=== PATIENT | female | born 1995 | race Caucasian/White ===

== ENCOUNTER 2024-08-04 19:00 | Inpatient (IN) | payer OTHER ==
--- OUTSIDE RECORDS SUMMARY | 2024-08-04 19:04 | XMS REPORT | Continuity of Care Document ---
Author Name Unknown Address [address] [facility] [address] [place] [address] [facility] thconnect Address [address] [facility] [address] [place] [address] Care Team Providers Care Water System Operator Name Role Phone Erica Mcclain, [facility] Primary Care Physician CIERA MATAMOROS Attending Clinician Unavailable [place] Ciera Attending Clinician [phone] Radha Song PA-C Attending Clinician [phone] Only, Ang Db Test Attending Clinician Unavailabl e Ray Devika MCKEON Attending Clinician [phone] DEVIKA BELL Attending Clinician Unavailabl e Doctor Unassigned, [place] Attending Clinician U navailable NAOMI MISHRA Attending Clinician Unavailable RADHA SONG Attending Clinician Unavailable Dayana Mata MD Attending Clinician [phone] Rodriguez Kirkland DO Attending Clinician [phone] Ada Berg MD Attending Clinician [phone] Lab, Adc Fam Pob I Attending Clinician Unavailab Jamilah Ward Attending Clinician [phone] JAMILAH MARCH Attending Clinician Unavailable DAYANA MATA Attending Clinician Unavailable ADA BERG Attending Clinician Unavailable Only, Adc Test Attending Clinician Unavailable Erik Weems MD Attending Clinician [phone] ERIK WEEMS Attending Clinician Unavailable Airam RN, Freya Attending Clinician Unavailable Nurse, [facility] Attending Clinician Un available Problems Condition Name Condition Details Condition Category Status Onset Date Resolution Date Last Treatment Date Treating Clinician Comments Source Morbid obesity with body mass index of 40.0-49.9 Morbid obesity with body mass index of 40.0-49.9 Disease Active 11-23 00:00: 00 [facility] Morbid obesity with body mass index of 40.0-49.9 Morbid obesity with body mass index of 40.0-49.9 Disease Active 11-23 00:00: 00 [facility] Short stature for age Short stature for age Disease Active 04-28 00:00: 00 [facility] On oral contracept sidney pills for non-contra ception indication On oral contracept sidney pills for non-contra ception indication Disease Active 2015-08 00:00: 00 [facility] Obesity (BMI 35.0-39.9 without comorbidit y) Obesity (BMI 35.0-39.9 without comorbidit y) Disease Active 03-15 00:00: 00 [facility] Dysmenorrh ea Dysmenorrh ea Disease Active 03-15 00:00: 00 [facility] Family history of endometrio sis Family history of endometrio sis Disease Active 03-15 00:00: 00 [facility] Oral contracept sidney use Oral contracept sidney use Disease Active 03-15 00:00: 00 [facility] Acquired hypothyroi dism Acquired hypothyroi dism Disease Active 03-15 00:00: 00 [facility] Allergies, Adverse Reactions, Alerts Allergy Name Allergy Type Status Severity Reaction(s) Onset Date Inactive Date Treating Clinician Comments Source DOXYLAMI N-PSE-DM -ACETAMI NOPHEN DRUG Active High Rash 10-01 00:00: 00 [facility] Doxylami n-Pse-Dm -Acetami nophen Propensi ty to adverse reaction s Active Rash 10-01 00:00: 00 [facility] NO KNOWN ALLERGIE S Drug Class Active [facility] Social History Social Habit Start Date Stop Date Quantity Comments [facility] to SARS-CoV-2 (event) 2021-07-17 00:00:00 2021-08-16 11:51:00 Not sure [facility] Alcohol intake 2021-02-25 00:00:00 2021-02-25 00:00:00 0 /d [facility] History of Social function 2019-02-28 00:00:00 2019-02-28 00:00:00 [facility] Tobacco use and exposure 2016-03-15 00:00:00 2016-03-15 00:00:00 Smokeless tobacco non-user [facility] Sex Assigned At 1995 00:00:00 1995 00:00:00 [facility] Smoking Status Start Date Stop Date Source Never smoked tobacco [facility] Medications Ordered Medication Name Filled Medication Name Start Date Stop Date Current Medication? Ordering Clinician Indication Dosage Frequency Signature (SIG) Comments Components Source bupropion HCl XL 450 mg 24 hr tablet, extended release 2023-08 00:00: 00 Yes 1mg Ernesto Garrison buspirone 15 mg tablet 2023-08 00:00: 00 Yes 1mg Ernesto Garrison hydroxyzine HCl 50 mg tablet 2023-08 00:00: 00 Yes 1mg Ernesto Garrison risperidone 1 mg tablet 2023-08 00:00: 00 Yes 1mg Ernesto Garrison topiramate 50 mg tablet 2023-08 00:00: 00 Yes 1mg Ernesto Garrison phentermine 15 mg capsule 2023-08 00:00: 00 Yes 1mg Ernesto Garrison rosuvastati n 10 mg tablet 2023-08 00:00: 00 Yes 1mg Ernesto Garrison risperidone 1 mg tablet 2023-08 00:00: 00 Yes 1mg Ernesto Garrison bupropion HCl XL 450 mg 24 hr tablet, extended release 2023-08 00:00: 00 Yes 1mg Ernesto Garrison buspirone 15 mg tablet 2023-08 00:00: 00 Yes 1mg Ernesto Garrison hydroxyzine HCl 50 mg tablet 2023-08 0-07 00:00: 00 Yes 1mg Ernesto Garrison risperidone 1 mg tablet 2023-08 0-07 00:00: 00 Yes 1mg Ernesto Garrison bupropion HCl XL 450 mg 24 hr tablet, extended release 0 8-08 00:00: 00 Yes 1mg Ernesto Garrison buspirone 10 mg tablet 0 8-08 00:00: 00 Yes 1mg Ernesto Garrison hydroxyzine HCl 50 mg tablet 0 8-08 00:00: 00 Yes 1mg Ernesto Garrison risperidone 1 mg tablet 0 8-08 00:00: 00 Yes 1mg Ernesto Garrison bupropion HCl XL 450 mg 24 hr tablet, extended release 0 6-12 00:00: 00 Yes 1mg Ernesto Garrison buspirone 10 mg tablet 0 6-12 00:00: 00 Yes 1mg Ernesto Garrison hydroxyzine HCl 50 mg tablet 0 6-12 00:00: 00 Yes 1mg Ernesto Garrison risperidone 1 mg tablet 0 6-12 00:00: 00 Yes 1mg Ernesto Garrison bupropion HCl XL 450 mg 24 hr tablet, extended release 0 5-15 00:00: 00 Yes 1mg Ernesto Garrison buspirone 10 mg tablet 0 5-15 00:00: 00 Yes 1mg Ernesto Garrison hydroxyzine HCl 50 mg tablet 0 5-15 00:00: 00 Yes 1mg Ernesto Garrison risperidone 1 mg tablet 0 5-15 00:00: 00 Yes 1mg Ernesto Garrison TAKE 1 TABLET BY MOUTH DAILY 0 24 00:00: 00 Yes 450 Ernesto Garrison TAKE 1 TABLET DAILY. 12-11 00:00: 00 Yes 300 Ernesto Garrison TAKE 1 TABLET AT BEDTIME. 12-11 00:00: 00 Yes 5 Ernesto Garrison TAKE 1 TABLET BY MOUTH TWICE A DAY 0 12-11 00:00: 00 Yes 75 Ernesto Garrison TAKE 1 TAB BY MOUTH EVERY SIX HOURS NEEDED FOR ANXIETY 0 12-11 00:00: 00 Yes 50 Ernesto Garrison losartan 50 mg tablet 12-03 00:00: 00 Yes 1mg Ernesto Garrison hydrochloro thiazide 50 mg tablet 12-03 00:00: 00 Yes 1mg Ernesto Garrison amlodipine 10 mg tablet 12-03 00:00: 00 Yes 1mg Ernesto Garrison TAKE 1 TABLET BY MOUTH TWICE A DAY 11-13 00:00: 00 01-02 00:00 :00 No 75 Ernesto Garrison TAKE 1 TABLET AT BEDTIME. 11-13 00:00: 00 01-02 00:00 :00 No 5 Ernesto Garrison TAKE 1 TABLET DAILY. 11-13 00:00: 00 01-02 00:00 :00 No 300 Ernesto Garrison TAKE 1 TAB BY MOUTH EVERY SIX HOURS NEEDED FOR ANXIETY 11-13 00:00: 00 01-02 00:00 :00 No 50 Ernesto Garrison TAKE 1 TABLET BY MOUTH TWICE A DAY 10-23 00:00: 00 01-02 00:00 :00 No 75 Ernesto Garrison TAKE 1 TAB BY MOUTH EVERY SIX HOURS NEEDED FOR ANXIETY 10-23 00:00: 00 01-02 00:00 :00 No 50 Ernesto Garrison buspirone 5 mg tablet 10-09 00:00: 00 Yes mg Ernesto Garrison hydroxyzine HCl 50 mg tablet 10-09 00:00: 00 Yes mg Ernesto Garrison TAKE 1 TAB EVERY 6 HOURS NEEDED FOR ANXIETY 09-18 00:00: 00 01-02 00:00 :00 No 25 Ernesto Garrison TAKE 1 TABLET DAILY. 09-04 00:00: 00 Yes 50 Ernesto Garrison TAKE 1 TABLET BY MOUTH DAILY FOR BLOOD PRESSURE. 09-04 00:00: 00 Yes 10 Ernesto Garrison TAKE 1 TABLET EVERY MORNING. 09-04 00:00: 00 Yes 50 Ernesto Garrison TAKE 1 TAB EVERY 6 HOURS NEEDED FOR ANXIETY 09-04 00:00: 00 01-02 00:00 :00 No 25 Ernestolynne Garrison TAKE 1 TAB PO QD FOR HYPERTENSIO N DOSAGE INCREASE 2022-08 00:00: 00 01-02 00:00 :00 No 10 Ernestolynne Garrison TAKE 1 TABLET DAILY. 2022-08 00:00: 00 01-02 00:00 :00 No 50 Ernesto Garrison TAKE 1 TABLET EVERY MORNING. 2022-08 00:00: 00 01-02 00:00 :00 No 50 Ernestolynne Garrison TAKE 1 TABLET EVERY MORNING. 05-08 00:00: 00 01-02 00:00 :00 No 50 Ernesto Garrison TAKE 1 TAB PO QD FOR HYPERTENSIO N DOSAGE INCREASE 05-08 00:00: 00 01-02 00:00 :00 No 10 Ernestolynne Garrison TAKE 1 TABLET DAILY. 04-07 00:00: 00 01-02 00:00 :00 No 5 Ernesto Garrison TAKE 1 TABLET EVERY MORNING. 04-07 00:00: 00 01-02 00:00 :00 No 50 Ernesto Yanci Garrison 1 po qd 02-20 00:00: 00 Yes 10 Ernesto Yanci Garrison 1 po qd 02-20 00:00: 00 Yes 20 Ernesto Yanci Garrison 1 po qd 02-20 00:00: 00 Yes [id number] Ernestolynne Garrison 1 po qd 02-20 00:00: 00 Yes 50 Ernesto Garrison TAKE 1 TAB PO QD FOR BLOOD PRESSURE 02-20 00:00: 00 01-02 00:00 :00 No 25 Ernesto Yanci Garrison 1 po qd - 00:00: 00 01-02 00:00 :00 No 300 Ernesto Yanci Garrison 1 po qd - 00:00: 00 01-02 00:00 :00 No 5 Ernesto Yanci Garrison predniSONE (DELTASONE) tablet 40 mg 2-12 03:30: 00 10-02 02:29 :00 No [id number] 40mg [facility] diphenhydrA MINE (BENADRYL) tablet 25 mg 2-12 03:30: 00 10-02 02:30 :00 No [id number] 25mg [facility] hydrOXYzine 25 mg tablet 2- 00:00: 00 Yes [id number] 25mg Take 1 tablet by mouth every 6 (six) hours as needed for Itching. [facility] predniSONE 20 mg tablet 2 00:00: 00 10-07 05:59 :00 No [id number] Take 2 tablets by mouth daily for 2 days, THEN 1 tablet daily for 3 days. [facility] benzonatate (TESSALON PERLES) 100 mg capsule 02-25 00:00: 00 Yes [id number] 100mg Take 1 capsule by mouth 3 (three) times daily. [facility] amLODIPine 5 mg tablet 02-25 00:00: 00 Yes [id number] 5mg Take 1 tablet by mouth daily. Additional refills per PCP [facility] norgestimat e-ethinyl estradioL (FEMYNOR) 0.25-35 mg-mcg per tablet 11-23 00:00: 00 Yes [id number] 1{tbl} Take 1 tablet by mouth daily. [facility] fluconazole 150 mg tablet 11-23 00:00: 00 11-24 04:59 :00 No [id number] 150mg Take 1 tablet by mouth once now for 1 dose. [facility] norgestimat e-ethinyl estradioL (FEMYNOR) 0.25-35 mg-mcg per tablet 11-10 00:00: 00 11-23 00:00 :00 No 1{tbl} Take 1 tablet by mouth daily. [facility] norgestimat e-ethinyl estradiol (FEMYNOR) 0.25-35 mg-mcg per tablet 18 00:00: 00 11-10 00:00 :00 No 1{tbl} Take 1 tablet by mouth daily. [facility] norgestimat e-ethinyl estradiol (FEMYNOR) 0.25-35 mg-mcg per tablet 08-29 00:00: 00 11-05 00:00 :00 No 1{tbl} Take 1 tablet by mouth daily. [facility] risperiDONE 0.5 mg tablet 03-07 00:00: 00 Yes [facility] traZODONE 100 mg tablet 03-06 00:00: 00 Yes [facility] buPROPion XL 300 mg 24 hr tablet 03-06 00:00: 00 Yes [facility] levothyroxi ne (SYNTHROID) 50 mcg tablet 03-01 00:00: 00 Yes 50ug Take 50 mcg by mouth daily. [facility] Immunizations Ordered Immunization Name Filled Immunization Name Date Status Comments Source influenza, unspecified f influenza, unspecified f 2020-06-10 00:00:00 Completed Ernesto Garrison Influenza Virus Vaccine 2020-06-10 00:00:00 Completed [facility] Influenza Virus Vaccine 2020-06-10 00:00:00 Completed [facility] Influenza Virus Vaccine 2020-06-10 00:00:00 Completed [facility] Influenza Virus Vaccine 2020-06-10 00:00:00 Completed [facility] HPV9 2017-08-28 00:00:00 Completed [facility] HPV9 2017-08-28 00:00:00 Completed [facility] HPV9 2017-08-28 00:00:00 Completed [facility] HPV9 2017-08-28 00:00:00 Completed [facility] HPV9 2017-08-28 00:00:00 Completed [facility] HPV9 2017-08-28 00:00:00 Completed [facility] HPV9 2017-08-28 00:00:00 Completed [facility] HPV9 2017-08-28 00:00:00 Completed [facility] HPV9 2017-08-28 00:00:00 Completed [facility] HPV9 2017-08-28 00:00:00 Completed [facility] HPV9 2017-08-28 00:00:00 Completed [facility] HPV9 2017-08-28 00:00:00 Completed [facility] HPV9 2017-08-28 00:00:00 Completed [facility] HPV9 2017-08-28 00:00:00 Completed [facility] HPV9 2017-08-28 00:00:00 Completed [facility] HPV9 2017-04-28 00:00:00 Completed [facility] HPV9 2017-04-28 00:00:00 Completed [facility] HPV9 2017-04-28 00:00:00 Completed [facility] HPV9 2017-04-28 00:00:00 Completed [facility] HPV9 2017-04-28 00:00:00 Completed [facility] HPV9 2017-04-28 00:00:00 Completed [facility] HPV9 2017-04-28 00:00:00 Completed [facility] HPV9 2017-04-28 00:00:00 Completed [facility] HPV9 2017-04-28 00:00:00 Completed [facility] HPV9 2017-04-28 00:00:00 Completed [facility] HPV9 2017-04-28 00:00:00 Completed [facility] HPV9 2017-04-28 00:00:00 Completed [facility] HPV9 2017-04-28 00:00:00 Completed [facility] HPV9 2017-04-28 00:00:00 Completed [facility] HPV9 2017-04-28 00:00:00 Completed [facility] HPV9 2016-03-15 00:00:00 Completed [facility] HPV9 2016-03-15 00:00:00 Completed [facility] HPV9 2016-03-15 00:00:00 Completed [facility] HPV9 2016-03-15 00:00:00 Completed [facility] HPV9 2016-03-15 00:00:00 Completed [facility] HPV9 2016-03-15 00:00:00 Completed [facility] HPV9 2016-03-15 00:00:00 Completed [facility] HPV9 2016-03-15 00:00:00 Completed [facility] HPV9 2016-03-15 00:00:00 Completed [facility] HPV9 2016-03-15 00:00:00 Completed [facility] HPV9 2016-03-15 00:00:00 Completed [facility] HPV9 2016-03-15 00:00:00 Completed [facility] HPV9 2016-03-15 00:00:00 Completed [facility] HPV9 2016-03-15 00:00:00 Completed [facility] HPV9 2016-03-15 00:00:00 Completed [facility] HPV9 Unknown Completed [facility] Influenza Virus Vaccine Unknown Completed [facility] Vital Signs Vital Name Observation Time Observation Value Comments S ource Systolic blood pressure 2021-10-02 02:14:00 154 mm[Hg] [facility] Diastolic blood pressure 2021-10-02 02:14:00 95 mm[Hg] [facility] Heart rate 2021-10-02 02:14:00 108 /min [facility] Body temperature 2021-10-02 02:14:00 36.78 Letty [facility] Body height 2021-10-02 02:14:00 149.9 cm [facility] Body weight 2021-10-02 02:14:00 104.191 kg Univ [facility] BMI 2021-10-02 02:14:00 46.39 kg/m2 [facility] Systolic blood pressure 2020-11-23 19:06:00 156 mm[Hg] [facility] Diastolic blood pressure 2020-11-23 19:06:00 98 mm[Hg] [facility] Heart rate 2020-11-23 19:06:00 94 /min [facility] Body temperature 2020-11-23 19:06:00 36.83 Letty [facility] Respiratory rate 2020-11-23 19:06:00 18 /min [facility] Body height 2020-11-23 19:06:00 149.9 cm [facility] Body weight 2020-11-23 19:06:00 105.235 kg Univ [facility] BMI 2020-11-23 19:06:00 46.86 kg/m2 [facility] Systolic blood pressure 2019-09-05 22:14:00 142 mm[Hg] [facility] Diastolic blood pressure 2019-09-05 22:14:00 94 mm[Hg] [facility] Heart rate 2019-09-05 22:13:00 101 /min [facility] Body temperature 2019-09-05 22:13:00 36.83 Letty [facility] Respiratory rate 2019-09-05 22:13:00 18 /min [facility] Body height 2019-09-05 22:13:00 149.9 cm [facility] Body weight 2019-09-05 22:13:00 100.699 kg [facility] BMI 2019-09-05 22:13:00 44.84 kg/m2 [facility] BP Systolic 2024-07-22 14:17:00 138 mm[Hg] Step hen F Bladimir BP Diastolic 2024-07-22 14:17:00 89 mm[Hg] Vik phen F Bladimir Weight Measured 2024-07-22 14:17:00 251.40 pounds Ernesto F Bladimir Height Measured 2024-07-22 14:17:00 59.00 inches Ernesto F Bladimir Body Temperature 2024-07-22 14:17:00 98.20 degrees Ernesto F Bladimir Heart Rate 2024-07-22 14:17:00 104.00 /min Step hen F Bladimir Respiratory Rate 2024-07-22 14:17:00 18.00 /min Ernesto F Bladimir BP Systolic 2024-07-08 09:33:00 Step hen F Bladimir BP Diastolic 2024-07-08 09:33:00 Vik phen F Bladimir Weight Measured 2024-07-08 09:33:00 Ernesto F Bladimir Height Measured 2024-07-08 09:33:00 Ernesto F Bladimir Body Temperature 2024-07-08 09:33:00 Ernesto F Bladimir Heart Rate 2024-07-08 09:33:00 Sandy en F Bladimir Respiratory Rate 2024-07-08 09:33:00 Ernesto F Bladimir BP Systolic 2024-06-10 11:12:00 124 mm[Hg] Step hen F Bladimir BP Diastolic 2024-06-10 11:12:00 84 mm[Hg] Vik phen F Bladimir Weight Measured 2024-06-10 11:12:00 250.20 pounds Ernesto F Bladimir Height Measured 2024-06-10 11:12:00 59.00 inches Ernesto F Bladimir Body Temperature 2024-06-10 11:12:00 97.00 degrees Ernesto F Bladimir Heart Rate 2024-06-10 11:12:00 98.30 /min Sandy en F Bladimir Respiratory Rate 2024-06-10 11:12:00 16.00 /min Ernesto F Bladimir BP Systolic 2023-12-04 09:15:00 147 mm[Hg] Step hen F Bladimir BP Diastolic 2023-12-04 09:15:00 79 mm[Hg] Vik phen F Bladimir Weight Measured 2023-12-04 09:15:00 247.00 pounds Ernesto F Bladimir Height Measured 2023-12-04 09:15:00 59.00 inches Ernesto F Bladimir Body Temperature 2023-12-04 09:15:00 97.80 degrees Ernesto F Bladimir Heart Rate 2023-12-04 09:15:00 92.00 /min Sandy en F Bladimir Respiratory Rate 2023-12-04 09:15:00 18.00 /min Ernesto F Bladimir BP Systolic 2023-09-04 09:20:00 138 mm[Hg] Step hen F Bladimir BP Diastolic 2023-09-04 09:20:00 72 mm[Hg] Vik phen F Bladimir Weight Measured 2023-09-04 09:20:00 243.00 pounds Ernesto F Bladimir Height Measured 2023-09-04 09:20:00 59.00 inches Ernesto F Bladimir Body Temperature 2023-09-04 09:20:00 98.30 degrees Ernesto F Bladimir Heart Rate 2023-09-04 09:20:00 96.00 /min Sandy en F Bladimir Respiratory Rate 2023-09-04 09:20:00 18.00 /min Ernesto F Bladimir BP Systolic 2023-06-12 11:08:00 153 mm[Hg] Step hen F Bladimir BP Diastolic 2023-06-12 11:08:00 89 mm[Hg] Vik phen F Bladimir Weight Measured 2023-06-12 11:08:00 237.40 pounds Ernesto F Bladimir Height Measured 2023-06-12 11:08:00 59.00 inches Ernesto F Bladimir Body Temperature 2023-06-12 11:08:00 98.30 degrees Ernesto F Bladimir Heart Rate 2023-06-12 11:08:00 97.00 /min Sandy en F Bladimir Respiratory Rate 2023-06-12 11:08:00 19.00 /min Ernesto F Bladimir BP Systolic 2023-05-08 15:11:00 152 mm[Hg] Step hen F Bladimir BP Diastolic 2023-05-08 15:11:00 95 mm[Hg] Vik phen F Bladimir Weight Measured 2023-05-08 15:11:00 241.60 pounds Ernesto F Bladimir Height Measured 2023-05-08 15:11:00 59.00 inches Ernesto F Bladimir Body Temperature 2023-05-08 15:11:00 98.20 degrees Ernesto F Bladimir Heart Rate 2023-05-08 15:11:00 107.00 /min Step hen F Bladimir Respiratory Rate 2023-05-08 15:11:00 Ernesto F Bladimir BP Systolic 2023-04-07 14:25:00 172 mm[Hg] Step hen F Bladimir BP Diastolic 2023-04-07 14:25:00 101 mm[Hg] Vik phen F Bladimir Weight Measured 2023-04-07 14:25:00 241.00 pounds Ernesto F Bladimir Height Measured 2023-04-07 14:25:00 59.00 inches Ernesto F Bladimir Body Temperature 2023-04-07 14:25:00 98.10 degrees Ernesto F Bladimir Heart Rate 2023-04-07 14:25:00 95.00 /min Sandy en F Bladimir Respiratory Rate 2023-04-07 14:25:00 Ernesto F Bladimir BP Systolic 2023-02-20 13:37:00 185 mm[Hg] Step hen F Bladimir BP Diastolic 2023-02-20 13:37:00 112 mm[Hg] Vik phen F Bladimir Weight Measured 2023-02-20 13:37:00 238.20 pounds Ernesto F Bladimir Height Measured 2023-02-20 13:37:00 59.00 inches Ernesto F Bladimir Body Temperature 2023-02-20 13:37:00 98.10 degrees Ernesto F Bladimir Heart Rate 2023-02-20 13:37:00 96.00 /min Sandy en F Bladimir Respiratory Rate 2023-02-20 13:37:00 17.00 /min Ernesto Garrison Procedures Procedure Date / Time Performed Performing Clinicia n Source ASSIGNMENT OF BENEFITS 2020-07-02 14:36:06 Docto r Unassigned, [place] [facility] ASSIGNMENT OF BENEFITS 2019-09-05 21:09:24 Docto r Unassigned, [place] [facility] Encounters Start Date/Time End Date/Time Encounter Type Admission Type Attending [facility] Care Department Encounter ID Source 2024-07-22 14:15:25 2024-07-22 14:15:25 Outpatient S[facility] [id number] Ernesto Garrison 2024-07-22 00:00:00 2024-07-22 00:00:00 Outpatient Visit [facility] [id number] Ernesto Garrison 2024-07-08 09:27:25 2024-07-08 09:27:25 Outpatient SFA [facility] [id number] Ernesto Garrison 2024-07-08 00:00:00 2024-07-08 00:00:00 Outpatient Visit SFA [id number] Ernesto Garrison 2024-06-11 10:46:00 2024-06-11 10:46:00 Outpatient SFA [facility] [id number] Ernesto Garrison 2024-06-10 11:11:21 2024-06-10 11:11:21 Outpatient [facility] [id number] Ernesto Garrison 2024-06-10 00:00:00 2024-06-10 00:00:00 Outpatient Visit SFA [id number] Ernesto Garrison 2024-01-03 09:54:35 2024-01-03 09:54:35 Outpatient [facility] [id number] Ernesto Garrison 2023-12-27 10:34:45 2023-12-27 10:34:45 Outpatient [facility] [id number] Ernesto Garrison 2023-12-20 11:01:29 2023-12-20 11:01:29 Outpatient SFA [facility] [id number] Ernesto Garrison 2023-12-19 13:06:06 2023-12-19 13:06:06 Outpatient SFA [facility] [id number] Ernesto Garrison 2023-12-13 14:16:02 2023-12-13 14:16:02 Outpatient SFA [facility] [id number] Ernesto Garrison 2023-12-12 09:40:01 2023-12-12 09:40:01 Outpatient SFA [facility] [id number] Ernesto Garrison 2023-12-04 09:16:03 2023-12-04 09:16:03 Outpatient SFA [facility] [id number] Ernesto Garrison 2023-11-14 08:16:48 2023-11-14 08:16:48 Outpatient SFA [facility] [id number] Ernesto Garrison 2023-11-13 13:03:32 2023-11-13 13:03:32 Outpatient SFA [facility] [id number] Ernesto Garrison 2023-10-24 08:36:49 2023-10-24 08:36:49 Outpatient SFA [facility] [id number] Ernesto Garrison 2023-10-16 13:05:42 2023-10-16 13:05:42 Outpatient SFA [facility] [id number] Ernesto Garrison 2023-10-09 09:50:46 2023-10-09 09:50:46 Outpatient SFA [facility] [id number] Ernesto Garrison 2023-09-19 13:07:13 2023-09-19 13:07:13 Outpatient SFA [facility] [id number] Ernesto Garrison 2023-09-18 10:19:36 2023-09-18 10:19:36 Outpatient SFA [facility] [id number] Ernesto Garrison 2023-09-04 15:37:31 2023-09-04 15:37:31 Outpatient SFA [facility] [id number] Ernesto Garrison 2023-06-12 11:02:42 2023-06-12 11:02:42 Outpatient SFA [facility] [id number] Ernesto Garrison 2023-05-08 15:03:20 2023-05-08 15:03:20 Outpatient SFA [facility] [id number] Ernesto Garrison 2023-04-07 14:09:52 2023-04-07 14:09:52 Outpatient [facility] [id number] rEnesto Garrison 2023-03-01 14:28:28 2023-03-01 14:28:28 Outpatient [facility] [id number] Ernesto Garrison 2021-10-01 20:00:00 2021-10-01 20:47:45 Outpatient R SHILOH CIERA [facility] [id number] [facility] 2021-10-01 20:00:00 2021-10-01 20:47:45 Urgent Care Counts include 234 beds at the [facility] MEDICAL [facility]ICE BU[facility] 1..840.114 350.1.13.10 4.2.7.2.686 [id number] [facility] 2021-09-03 00:00:00 2021-09-03 00:00:00 Telephone Radha Song [facility] BUILDING 1..840.114 350.1.13.10 4.2.7.2.686 [id number] [facility] 2021-08-16 12:00:00 2021-08-16 12:15:00 Laboratory Only Only, Ang Db Test Ray [facility] MEDICAL OFFICE BUILDING 1..840.114 350.1.13.10 4.2.7.2.686 [id number] [facility] 2021-08-16 12:00:00 2021-08-16 12:00:00 Outpatient R RAY [facility] [id number] [facility] 2021-03-05 00:00:00 2021-03-05 00:00:00 Patient Secure Msg Doctor Unassigned, [place] [facility] 1.840.114 350.1.13.10 4.2.7.2.686 [id number] [facility] 2021-02-25 09:20:00 2021-02-25 09:20:00 Outpatient R NAOMI MISHRA [facility] [id number] [facility] 2020-11-23 13:50:18 2020-11-23 14:35:37 Office Visit Parkerdavid Radha [facility] 1.840.114 350.1.13.10 4.2.7.2.686 [id number] [facility] 2020-11-23 14:00:00 2020-11-23 14:00:00 Outpatient R NOHEMI [facility] [id number] [facility] 2020-11-13 00:00:00 2020-11-13 00:00:00 Refill Dayana Mata [facility] 1..114 350.1.13.10 4.2.7.2.686 [id number] [facility] 2020-11-10 00:00:00 2020-11-10 00:00:00 Patient Outreach Rodriguez Kirkland [facility] 1..114 350.1.13.10 4.2.7.2.686 [id number] [facility] 2020-11-09 00:00:00 2020-11-09 00:00:00 Refill Ada Berg [facility] 1..114 350.1.13.10 4.2.7.2.686 [id number] [facility] 2020-10-16 12:58:28 2020-10-16 13:18:28 Laboratory Only Lab, Adc Fam Pob Jamilah Malin [facility] 1.84.114 350.1.13.10 4.2.7.2.686 [id number] [facility] 2020-10-16 13:00:00 2020-10-16 13:00:00 Outpatient R JAMILAH MARCH [facility] [id number] [facility] 2020-09-10 10:00:00 2020-09-10 10:00:00 Outpatient R DAYANA MATA [facility] [id number] [facility] 2020-09-10 08:00:00 2020-09-10 08:00:00 Outpatient R ADA BERG [facility] [id number] [facility] 2020-09-01 17:20:51 2020-09-01 17:40:51 Laboratory Only Lab, Adc Fam Pob Clau [place] [facility] Office [facility] One 1.840.114 350.1.13.10 4.2.7.2.686 [id number] [facility] 2020-09-01 17:20:00 2020-09-01 17:20:00 Outpatient R SHILOH CIERA [facility] [id number] [facility] 2020-07-02 08:40:21 2020-07-02 08:55:21 Laboratory Only Only, Adc Test Erik Weems [facility] 1.840.114 350.1.13.10 4.2.7.2.686 [id number] [facility] 2020-07-02 08:30:00 2020-07-02 08:30:00 Outpatient R ERIK WEEMS [facility] [id number] [facility] 2020-07-02 00:00:00 2020-07-02 00:00:00 Letter (Out) Freya Alegria [facility] 1.84.114 350.1.13.10 4.2.7.2.686 [id number] [facility] 2020-07-02 00:00:00 2020-07-02 00:00:00 Orders Only Doctor Unassigned, [place] [facility] 1.2.840.114 350.1.13.10 4.2.7.2.686 [id number] [facility] 2019-11-05 00:00:00 2019-11-05 00:00:00 Refill Nurse, [facility] 1.2.840.114 350.1.13.10 4.2.7.2.686 [id number] [facility] 2019-09-05 15:35:22 2019-09-05 16:39:59 Office Visit Dayana Mata [facility] 1.2.840.114 350.1.13.10 4.2.7.2.686 [id number] [facility] 2019-09-05 00:00:00 2019-09-05 00:00:00 Orders Only Doctor Unassigned, [place] [facility] 1.2.840.114 350.1.13.10 4.2.7.2.686 [id number] [facility] Results Test Description Test Time Test Comments Results Result Co mments Source Ernesto GarrisonLIPID [id number] 00:00:00* Test Item Value Reference Range Interpretation Comme nts CHOLESTEROL (test code = 2210) 237 MG/DL TRIGLYCERIDES (test code = 2232) 249 MG/DL HDL CHOLESTEROL (test code = 2220) 45 MG/DL CALC LDL CHOL (test code = 2237) 151 MG/DL RISK RATIO LDL/HDL (test cod e = 2238) 3.36 RATIO Ernesto GarrisonHEMOGLOBIN [id number] 00:00:00* Test Item Value Reference Range Interpretation Comme nts HEMOGLOBIN A1c (test code = 22608) 6.1 % Ernesto Yanci GarrisonCOMPREHENSIVE METABOLIC [id number] 00:00:00* Test Item Value Reference Range Interpretation Comme nts GLUCOSE (test code = 2217) 111 MG/DL BUN (test code = 2208) 11 MG/DL CREATININE (test code = 2214) 0.81 MG/DL eGFR (2020 CKD-EPI) (test co de = 77348) 99 ML/MIN/1.73 CALC BUN/CREAT (test code = 2235) 14 RATIO SODIUM (test code = 2231) 140 MEQ/L POTASSIUM (test code = 2228) 3.7 MEQ/L CHLORIDE (test code = 2215) 96 MEQ/L CARBON DIOXIDE (test code = 2206) 26 MEQ/L CALCIUM (test code = 2209) 10.2 MG/DL PROTEIN, TOTAL (test code = 2229) 7.9 G/DL ALBUMIN (test code = 2201) 4.7 G/DL CALC GLOBULIN (test code = 2240) 3.2 G/DL CALC A/G RATIO (test code = 2234) 1.5 RATIO BILIRUBIN, TOTAL (test code = 2207) 0.3 MG/DL ALKALINE PHOSPHATASE (test code = 2204) 75 U/L AST (test code = 2218) 15 U/L ALT (test code = 2219) 19 U/L Ernesto Pete AustinLIPID [id number] 00:00:00* Test Item Value Reference Range Interpretation Comme nts CHOLESTEROL (test code = 2210) 237 MG/DL TRIGLYCERIDES (test code = 2232) 249 MG/DL HDL CHOLESTEROL (test code = 2220) 45 MG/DL CALC LDL CHOL (test code = 2237) 151 MG/DL RISK RATIO LDL/HDL (test cod e = 2238) 3.36 RATIO Ernesto Pete HardawayHEMOGLOBIN [id number] 00:00:00* Test Item Value Reference Range Interpretation Comme nts HEMOGLOBIN A1c (test code = 45003) 6.1 % Ernesto Pete HardawayCOMPREHENSIVE METABOLIC [id number] 00:00:00* Test Item Value Reference Range Interpretation Comme nts GLUCOSE (test code = 2217) 111 MG/DL BUN (test code = 2208) 11 MG/DL CREATININE (test code = 2214) 0.81 MG/DL eGFR (2020 CKD-EPI) (test co de = 64129) 99 ML/MIN/1.73 CALC BUN/CREAT (test code = 2235) 14 RATIO SODIUM (test code = 2231) 140 MEQ/L POTASSIUM (test code = 2228) 3.7 MEQ/L CHLORIDE (test code = 2215) 96 MEQ/L CARBON DIOXIDE (test code = 2206) 26 MEQ/L CALCIUM (test code = 2209) 10.2 MG/DL PROTEIN, TOTAL (test code = 2229) 7.9 G/DL ALBUMIN (test code = 2201) 4.7 G/DL CALC GLOBULIN (test code = 2240) 3.2 G/DL CALC A/G RATIO (test code = 2234) 1.5 RATIO BILIRUBIN, TOTAL (test code = 2207) 0.3 MG/DL ALKALINE PHOSPHATASE (test code = 2204) 75 U/L AST (test code = 2218) 15 U/L ALT (test code = 2219) 19 U/L Ernesto GarrisonLIPID [id number] 00:00:00* Test Item Value Reference Range Interpretation Comme nts CHOLESTEROL (test code = 2210) 237 MG/DL TRIGLYCERIDES (test code = 2232) 249 MG/DL HDL CHOLESTEROL (test code = 2220) 45 MG/DL CALC LDL CHOL (test code = 2237) 151 MG/DL RISK RATIO LDL/HDL (test cod e = 2238) 3.36 RATIO Ernesto GarrisonHEMOGLOBIN [id number] 00:00:00* Test Item Value Reference Range Interpretation Comme nts HEMOGLOBIN A1c (test code = 03342) 6.1 % Ernesto GarrisonCOMPREHENSIVE METABOLIC [id number] 00:00:00* Test Item Value Reference Range Interpretation Comme nts GLUCOSE (test code = 2217) 116 MG/DL BUN (test code = 8) 15 MG/DL CREATININE (test code = 2214) 0.84 MG/DL eGFR (2020 CKD-EPI) (test co de = 66347) 96 ML/MIN/1.73 CALC BUN/CREAT (test code = 2235) 18 RATIO SODIUM (test code = 2231) 136 MEQ/L POTASSIUM (test code = 2228) 3.6 MEQ/L CHLORIDE (test code = 2215) 96 MEQ/L CARBON DIOXIDE (test code = 2206) 24 MEQ/L CALCIUM (test code = 2209) 10.2 MG/DL PROTEIN, TOTAL (test code = 2229) 8.2 G/DL ALBUMIN (test code = 2201) 4.5 G/DL CALC GLOBULIN (test code = 2240) 3.7 G/DL CALC A/G RATIO (test code = 2234) 1.2 RATIO BILIRUBIN, TOTAL (test code = 2207) <0.2 MG/DL ALKALINE PHOSPHATASE (test code = 2204) 88 U/L AST (test code = 2218) 13 U/L ALT (test code = 2219) 13 U/L Ernesto Sheth THIRD [id number] 00:00:00* Test Item Value Reference Range Interpretation Comme nts TSH, THIRD GENERATION (test code = 2821) 2.990 UIU/ML Ernesto GarrisonCOMPREHENSIVE METABOLIC [id number] 00:00:00* Test Item Value Reference Range Interpretation Comme nts GLUCOSE (test code = 2217) 116 MG/DL BUN (test code = 2208) 15 MG/DL CREATININE (test code = 2214) 0.84 MG/DL eGFR (2020 CKD-EPI) (test co de = 89741) 96 ML/MIN/1.73 CALC BUN/CREAT (test code = 2235) 18 RATIO SODIUM (test code = 2231) 136 MEQ/L POTASSIUM (test code = 2228) 3.6 MEQ/L CHLORIDE (test code = 2215) 96 MEQ/L CARBON DIOXIDE (test code = 2206) 24 MEQ/L CALCIUM (test code = 2209) 10.2 MG/DL PROTEIN, TOTAL (test code = 2229) 8.2 G/DL ALBUMIN (test code = 2201) 4.5 G/DL CALC GLOBULIN (test code = 2240) 3.7 G/DL CALC A/G RATIO (test code = 2234) 1.2 RATIO BILIRUBIN, TOTAL (test code = 2207) <0.2 MG/DL ALKALINE PHOSPHATASE (test code = 2204) 88 U/L AST (test code = 2218) 13 U/L ALT (test code = 2219) 13 U/L Ernesto Sheth, THIRD [id number] 00:00:00* Test Item Value Reference Range Interpretation Comme nts TSH, THIRD GENERATION (test code = 2821) 2.990 UIU/ML Ernesto GarrisonCOMPREHENSIVE METABOLIC [id number] 00:00:00* Test Item Value Reference Range Interpretation Comme nts GLUCOSE (test code = 2217) 116 MG/DL BUN (test code = 2208) 15 MG/DL CREATININE (test code = 2214) 0.84 MG/DL eGFR (2020 CKD-EPI) (test co de = 76120) 96 ML/MIN/1.73 CALC BUN/CREAT (test code = 2235) 18 RATIO SODIUM (test code = 2231) 136 MEQ/L POTASSIUM (test code = 2228) 3.6 MEQ/L CHLORIDE (test code = 2215) 96 MEQ/L CARBON DIOXIDE (test code = 2206) 24 MEQ/L CALCIUM (test code = 2209) 10.2 MG/DL PROTEIN, TOTAL (test code = 2229) 8.2 G/DL ALBUMIN (test code = 2201) 4.5 G/DL CALC GLOBULIN (test code = 2240) 3.7 G/DL CALC A/G RATIO (test code = 2234) 1.2 RATIO BILIRUBIN, TOTAL (test code = 2207) <0.2 MG/DL ALKALINE PHOSPHATASE (test code = 2204) 88 U/L AST (test code = 2218) 13 U/L ALT (test code = 2219) 13 U/L Ernesto GarrisonH, THIRD [id number] 00:00:00* Test Item Value Reference Range Interpretation Comme [facility] TSH, THIRD GENERATION (test code = 2821) 2.990 UIU/ML Ernesto Garrison
[2024-08-04] MEDS ORDERED: BISACODYL 10 MG RECTAL SUPP ONE (20:43)
[2024-08-04] MEDS ORDERED: NA CHLORIDE 0.9% 1,000 ML ONE (20:43)
[2024-08-04] MEDS ORDERED: LACTULOSE 20 GM/30 ML UCUP ONE ×2 (20:44→22:53)
[2024-08-04 21:48] LABS: Absolute Eosinophils 0.1 K/uL (0-0.5); Absolute Lymphocytes (CBC) 1.9 K/uL (0.7-4.9); Absolute Monocytes 0.7 K/uL (0.1-1.3); Absolute Neutrophil 11.4 K/uL (1.8-8.0); Basophils % 0.3 % (0-1.3); Eosinophils % 0.4 % (0-4.4); Hematocrit 37.6 % (36.0-45.0); Hemoglobin 12.3 g/dL (12.0-15.0); Lymphocytes % 13.5 % (15.3-44.8); MCH 22.7 pg (27.0-35.0); MCHC 32.8 g/dL (32.0-36.0); MCV 69.4 fL (80-100); MPV 6.5 fL (7.6-11.3); Neutrophils % 80.8 % (41.7-73.7); Nucleated Red Blood Cells % 0.1 % (0-0); Platelets 518 thou/uL (152-406); RBC Red Blood Cell Count 5.41 M/uL (3.86-4.86); Red Cell Distribution Width 14.6 % (12.1-15.2)
[2024-08-04 22:05] LABS: Albumin 4.1 g/dL (3.4-5.0); Albumin/Globulin Ratio 0.8 (1.1-1.8); Anion Gap 14.4 mEq/L (5.0-15.0); Bilirubin Total 0.4 mg/dL (0.2-1.0); Protein, Total 9.1 g/dL (6.4-8.2)
[2024-08-04 22:08] LABS: Potassium 2.4 mEq/L (3.5-5.1)
[2024-08-04 22:44] LABS: Phosphorus 4.2 mg/dL (2.5-4.9)
--- NOTE | 2024-08-04 22:50 | RAD REPORT ---
EXAMINATION: CT ABDOMEN AND PELVIS WITH CONTRAST CLINICAL INDICATION: Abdominal pain TECHNIQUE: CT abdomen and pelvis was performed, after the administration of 100 cc Isovue-300.. Sagit maria del carmen and coronal reconstructions were obtained. One or more of the following dose reduction techniques were used: Automated exposure control, adjustment of the mA and kV according to patient si ze, and iterative reconstruction. Unless otherwise specified, incidental findings do not require dedicated imaging follow-up. [id number]. Oral contrast was given. COMPARISON: .2016 FINDINGS: Cholecystectomy. Liver, spleen, pancreas, adrenals and kidneys appear unremarkable Normal appendix. No adnexal mass. No evidence of diverticulitis. Rectum is mildly distended with stool measuring 6 mm. Liquid stool is present throughout the remainde r of the colon. The ascending and transverse colon measure 5.8 cm. Small umbilical hernia : IMPRESSION: Rectum is mildly distended with stool which may indicate a fecal impaction.
[2024-08-04] MEDS ORDERED: NS KCL 20MEQ 1,000 ML IV ONE (22:52)
[2024-08-04] MEDS ORDERED: KCL 20 MEQ/100 mL IVPB 100 ML IV ONE (22:53)
[2024-08-04] MEDS ORDERED: NA CHLORIDE 0.9% 500 ML ONE (22:54)
--- NOTE | 2024-08-04 23:22 | ER ---
Nurse's Notes [facility] Name: Em Self Age: 29 yrs Sex: Female : 1995 Arrival Date: 08/04/2024 Time: 19:00 Bed 9 Private MD: Diagnosis: Abdominal tenderness;Fecal impaction;Constipation;Obesity, unspecified;Hypokalemia;Elevated white blood cell count Presentation: 08/04 19:39 Chief complaint: Patient states: CONSTIPATION FOR 3 DAYS. PT ALSO REPORTS LOWER cm10 ABDOMINAL PAIN. Coronavirus screen: Client denies travel out of the [place] in the last 14 days. Ebola Screen: Patient denies travel to an Ebola-affected area in the 21 days before illness onset. No symptoms or risks identified at this time. Initial Sepsis Screen: Does the patient meet any 2 criteria? HR > 90 bpm. Does the patient have a suspected source of infection? No. Patient's initial sepsis screen is negative. Risk Assessment: Do you want to hurt yourself or someone else? Patient reports no desire to harm self or others. Onset of symptoms was August 04, 2024. 19:39 Method Of Arrival: Ambulatory cm10 19:39 Acuity: LAURA 3 cm10 Historical: - Allergies: 19:40 No Known Allergies; cm10 - PMHx: 19:40 GERD; Hypothyroidism; Hypertensive disorder; Depressive disorder; Anxiety; cm10 - PSHx: 19:40 None; cm10 - Immunization history:: Adult Immunizations up to date. - Infectious Disease History:: Denies. - Social history:: Smoking status: Patient denies any tobacco usage or history of. - Family history:: not pertinent. Screenin:00 [facility] ED Fall Risk Assessment (Adult) History of falling in the last 3 months, jb4 including since admission No falls in past 3 months (0 pts) Confusion or Disorientation No (0 pts) Intoxicated or Sedated No (0 pts) Impaired Gait No (0 pts) Mobility Assist Device Used No (0 pt) Altered Elimination No (0 pt) Score/Fall Risk Level 0 - 2 = Low Risk Oriented to surroundings, Maintained a safe environment. Abuse screen: Denies threats or abuse. Nutritional screening: No deficits noted. Tuberculosis screening: No symptoms or risk factors identified. Assessment: 21:00 General: Appears in no apparent distress. comfortable, Behavior is calm, cooperative, jb4 appropriate for age. Pain: Complains of pain in right lower quadrant and left lower quadrant Pain does not radiate. Pain currently is 10 out of 10 on a pain scale. Neuro: Level of Consciousness is awake, alert, obeys commands, Oriented to person, place, time, situation. Cardiovascular: Patient's skin is warm and dry. Respiratory: Airway is patent Respiratory effort is even, unlabored. GI: Abdomen is non-distended, obese, Abd is soft X 4 quads Abd is non tender in right upper quadrant and left upper quadrant Abdomen is tender to palpation in right lower quadrant and left lower quadrant Reports lower abdominal pain, constipation. Derm: Skin is intact, Skin is pink, warm \\T\\ dry. Musculoskeletal: Circulation, motion, and sensation intact. Range of motion:. 22:02 Reassessment: Patient appears in no apparent distress at this time. Patient and/or jb4 family updated on plan of care and expected duration. Pain level reassessed. Patient is alert, oriented x 3, equal unlabored respirations, skin warm/dry/pink. Pt refused test stating " I have not had sex in several months. I am not . I will sign the waiver for CT." CT notified, lab notified. 23:00 General: Appears uncomfortable, Behavior is calm, cooperative. Pain: Complains of pain ha1 in abdomen Pain does not radiate. Pain currently is 7 out of 10 on a pain scale. Neuro: Level of Consciousness is awake, alert, obeys commands, Oriented to person, place, time, situation. Cardiovascular: Capillary refill < 3 seconds Patient's skin is warm and dry. Respiratory: Airway is patent Respiratory effort is even, unlabored, Respiratory pattern is regular, symmetrical. GI: Bowel sounds present X 4 quads. GI: Abdomen is round non-distended, obese, Bowel sounds present X 4 quads. Abd is soft X 4 quads Reports lower abdominal pain, constipation, nausea. Derm: Skin is moist, Skin is pink, warm \\T\\ dry. Musculoskeletal: Circulation, motion, and sensation intact. Range of motion: intact in all extremities. 08/05 00:00 Reassessment: Patient and/or family updated on plan of care and expected duration. Pain ha1 level reassessed. Patient is alert, oriented x 3, equal unlabored respirations, skin warm/dry/pink. 01:35 Reassessment: PATIENT IN BATHROOM. ha1 01:50 Reassessment: Patient and/or family updated on plan of care and expected duration. Pain ha1 level reassessed. Patient is alert, oriented x 3, equal unlabored respirations, skin warm/dry/pink. Vital Signs: 08/04 19:39 BP 133 / 94; Pulse 105; Resp 18; Temp 96.7(TE); Pulse Ox 97% on R/A; Weight 113.4 kg; cm10 Height 5 ft. 0 in. ; Pain 10/10; 22:10 BP 143 / 86; Pulse 94; Resp 16; Pulse Ox 98% on R/A; jb4 23:55 BP 139 / 83; Pulse 96; Resp 19 S; Temp 98.2(T); Pulse Ox 100% on R/A; ha1 08/05 01:00 BP 135 / 81; Pulse 94; Resp 19 S; Temp 97.5; Pulse Ox 100% on R/A; ha1 08/04 19:39 Body Mass Index 48.82 (113.40 kg, 152.4 cm) cm10 08/04 19:39 Pain Scale: Adult cm10 ED Course: 08/04 19:05 Patient arrived in ED. ra3 19:22 Rolando Card MD is Attending Physician. [facility] 19:40 Triage completed. cm10 19:41 Arm band placed on right wrist. Patient placed in waiting room. cm10 21:00 Patient has correct armband on for positive identification. Bed in low position. Call jb4 light in reach. Side rails up X 1. Provided Education on: plan of care. 21:00 No provider procedures requiring assistance completed. Inserted saline lock: 22 gauge jb4 in right forearm, using aseptic technique. 22:27 CT Abd/Pelvis - PO and IV Contrast In Process Unspecified. EDMS 23:15 Charles Petersen MD is Referral Physician. shawn 23:16 Reed Fox MD is Hospitalizing Provider. shawn 08/05 00:40 Inserted saline lock: 24 gauge in left forearm, using aseptic technique. ha1 Administered Medications: 08/04 21:00 Drug: Dulcolax DC Suppository 10 mg DC once Route: DC; jb4 21:30 Follow up: Response: No adverse reaction ha1 21:00 Drug: Lactulose PO 30 grams 45 ml PO once Volume: 45 ml; Route: PO; jb4 22:00 Follow up: Response: No adverse reaction ha1 21:18 Drug: NS 0.9% IV 1000 ml IV at 1000 ml once; to be given as a bolus over 60 minutes jb4 Route: IV; Rate: 1000 ml; Site: right forearm; 08/05 00:50 Follow up: Response: No adverse reaction; IV Status: Completed infusion; IV Intake: ha1 1000ml 08/04 22:08 CANCELLED (Duplicate Order): ns 0.9% 1000 ml IV at 1000 ml once; to be given as a bolus shawn over 60 minutes 23:03 Drug: Potassium Chloride IV 20 mEq IV at per protocol once; administer over 1-2 hours ha1 Route: IV; Rate: per protocol; Site: right forearm; 08/05 01:50 Follow up: Response: No adverse reaction; IV Status: Infusion continued upon admission [facility] 08/04 23:04 Drug: NS 0.9% with KCl IV 20 mEq/L 1000 ml IV at 125 ml/hr continuous Route: IV; Rate: ha1 125 ml/hr; Site: right forearm; 08/05 01:50 Follow up: Response: No adverse reaction; IV Status: Infusion continued upon admission; [facility] IV Intake: 250ml 00:30 Drug: Lactulose PO 30 grams 45 ml PO once Volume: 45 ml; Route: PO; ha1 01:50 Follow up: Response: No adverse reaction; Marked relief of symptoms ha1 00:50 Drug: Potassium PO Effervescent Tablet 50 mEq PO once; dissolve in 4 ounces of water or ha1 juice Route: PO; 01:20 Follow up: Response: No adverse reaction ha1 01:04 Drug: Ciprofloxacin IVPB 400 mg 200 ml IVPB once over 60 mins Volume: 200 ml; Route: ha1 IVPB; Infused Over: 60 mins; Site: left forearm; 01:50 Follow up: Response: No adverse reaction; IV Status: Infusion continued upon admission ha1 01:04 Drug: NS 0.9% IV 1000 ml IV at 1000 ml once; to be given as a bolus over 60 minutes ha1 Route: IV; Rate: 1000 ml; Site: left forearm; 01:50 Follow up: Response: No adverse reaction; IV Status: Infusion continued upon admission ha1 01:06 Drug: Potassium Chloride IV 20 mEq IV at per protocol once; administer over 1-2 hours ha1 {Note: WILL BE ADMINISTERED UPSTAIRS WHEN FIRST BAG OF 20 MEQ WILL BE COMPLETED .} Route: IV; Rate: per protocol; Site: right antecubital; 01:50 Follow up: Response: No adverse reaction; IV Status: Infusion continued upon admission ha1 Medication: 08/04 21:00 VIS not applicable for this client. jb4 Intake: 08/05 00:50 IV: 1000ml; Total: 1000ml. ha1 01:50 IV: 250ml; Total: 1250ml. ha1 Outcome: 08/04 23:15 Discharge ordered by . shawn 23:21 Decision to Hospitalize by Provider. [facility] 08/05 01:50 Patient left the ED. ha1 01:50 Condition: stable ha1 01:50 Admitted to Med/surg accompanied by tech, via wheelchair, with chart, ha1 01:50 Instructed on the need for admit, Demonstrated understanding of instructions, Signatures: Dispatcher [employer] EDMS Rolando Card MD MD cha Bryson, James, RN RN jb4 Julissa Vora RN RN ha1 Keya Diaz RN RN cm10 Estrella Bennett 3 Corrections: (The following items were deleted from the chart) 08/04 22:10 21:00 GI: Abdomen is non-distended, obese, Abd is soft and non tender X 4 quads. jb4 Reports lower abdominal pain, constipation, jb4 08/05 02:05 02:05 Patient left the ED. ha1 ha1
--- NOTE | 2024-08-04 23:22 | EDPHYS ---
Physician Documentation [facility] Name: Em Self Age: 29 yrs Sex: Female : 1995 Arrival Date: 08/04/2024 Time: 19:00 Bed 9 Private MD: ED Physician Rolando Card HPI: 08/04 20:51 This 29 yrs old Female presents to ER via Ambulatory with complaints of shawn Constipation - x3days. 20:51 The patient presents with abdominal pain abdominal distention in the upper abdomen, in shawn the lower abdomen. Onset: The symptoms/episode began/occurred 3 day(s) ago. The symptoms do not radiate. Associated signs and symptoms: none. The symptoms are described as crampy. Modifying factors: The symptoms are alleviated by nothing, the symptoms are aggravated by no bm. Severity of pain: At its worst the pain was mild moderate in the emergency department the pain is unchanged. The patient has experienced similar episodes in the past, multiple times. Historical: - Allergies: 19:40 No Known Allergies; cm10 - PMHx: 19:40 GERD; Hypothyroidism; Hypertensive disorder; Depressive disorder; Anxiety; cm10 - PSHx: 19:40 None; cm10 - Immunization history:: Adult Immunizations up to date. - Infectious Disease History:: Denies. - Social history:: Smoking status: Patient denies any tobacco usage or history of. - Family history:: not pertinent. ROS: 20:51 Constitutional: Negative for fever, chills, and weight loss, Eyes: Negative for injury, shawn pain, redness, and discharge, ENT: Negative for injury, pain, and discharge, Neck: Negative for injury, pain, and swelling, Cardiovascular: Negative for chest pain, palpitations, and edema, Respiratory: Negative for shortness of breath, cough, wheezing, and pleuritic chest pain, Back: Negative for injury and pain, : Negative for injury, bleeding, discharge, and swelling, MS/Extremity: Negative for injury and deformity, Skin: Negative for injury, rash, and discoloration, Neuro: Negative for headache, weakness, numbness, tingling, and seizure, Psych: Negative for depression, anxiety, suicide ideation, homicidal ideation, and hallucinations, Allergy/Immunology: Negative for hives, rash, and allergies, Endocrine: Negative for neck swelling, polydipsia, polyuria, polyphagia, and marked weight changes, Hematologic/Lymphatic: Negative for swollen nodes, abnormal bleeding, and unusual bruising, 20:51 Abdomen/GI: Positive for abdominal pain, constipation, abdominal cramps, abdominal distension, Exam: 20:51 Constitutional: This is a well developed, well nourished patient who is awake, alert, shawn and in no acute distress. Head/Face: Normocephalic, atraumatic. Eyes: Pupils equal round and reactive to light, extra-ocular motions intact. Lids and lashes normal. Conjunctiva and sclera are non-icteric and not injected. Cornea within normal limits. Periorbital areas with no swelling, redness, or edema. ENT: Nares patent. No nasal discharge, no septal abnormalities noted. Tympanic membranes are normal and external auditory canals are clear. Oropharynx with no redness, swelling, or masses, exudates, or evidence of obstruction, uvula midline. Mucous membranes moist. Neck: Trachea midline, no thyromegaly or masses palpated, and no cervical lymphadenopathy. Supple, full range of motion without nuchal rigidity, or vertebral point tenderness. No Meningismus. Chest/axilla: Normal chest wall appearance and motion. Nontender with no deformity. No lesions are appreciated. Cardiovascular: Regular rate and rhythm with a normal S1 and S2. No gallops, murmurs, or rubs. Normal PMI, no JVD. No pulse deficits. Respiratory: Lungs have equal breath sounds bilaterally, clear to auscultation and percussion. No rales, rhonchi or wheezes noted. No increased work of breathing, no retractions or nasal flaring. Back: No spinal tenderness. No costovertebral tenderness. Full range of motion. Skin: Warm, dry with normal turgor. Normal color with no rashes, no lesions, and no evidence of cellulitis. MS/ Extremity: Pulses equal, no cyanosis. Neurovascular intact. Full, normal range of motion., bilateral aka Neuro: Awake and alert, GCS 15, oriented to person, place, time, and situation. Cranial nerves II-XII grossly intact. Motor strength 5/5 in all extremities. Sensory grossly intact. Cerebellar exam normal. Normal gait. 20:51 Abdomen/GI: Inspection: distension, that is moderate, Bowel sounds: normal, Palpation: mild abdominal tenderness, in all quadrants, Liver: no appreciated palpable abnormalities, Hernia: not appreciated, Vital Signs: 19:39 BP 133 / 94; Pulse 105; Resp 18; Temp 96.7(TE); Pulse Ox 97% on R/A; Weight 113.4 kg; cm10 Height 5 ft. 0 in. ; Pain 10/10; 22:10 BP 143 / 86; Pulse 94; Resp 16; Pulse Ox 98% on R/A; jb4 23:55 BP 139 / 83; Pulse 96; Resp 19 S; Temp 98.2(T); Pulse Ox 100% on R/A; ha1 08/05 01:00 BP 135 / 81; Pulse 94; Resp 19 S; Temp 97.5; Pulse Ox 100% on R/A; ha1 08/04 19:39 Body Mass Index 48.82 (113.40 kg, 152.4 cm) cm10 08/04 19:39 Pain Scale: Adult cm10 MDM: 08/04 19:21 Medical Screening Exam initiated [facility] 19:22 Medical Screening Exam initiated [facility] 20:55 Differential diagnosis: appendicitis, bowel obstruction, cholecystitis, Cholelithiasis, shawn diverticulitis, gastritis, non-specific abd pain, pancreatitis, Peptic Ulcer Disease, Pyelonephritis, Ureterolithiasis, urinary tract infection. Data reviewed: vital signs, nurses notes, lab test result(s), radiologic studies, CT scan. Consideration of Admission/Observation Patient was admitted/placed on observation. Escalation of care including admission/observation considered. I considered the following discharge prescriptions or medication management in the emergency department Medications were administered in the Emergency Department. See MAR. Independent interpretation of the following test(s) in the Emergency Department CT Scan: My interpretation is ct ab/ pel. Test considered but Not performed: Ultrasound no abd usg. Historians other than the Patient: Family Member: relative. Care significantly affected by the following chronic conditions: Hypertension, Obesity, gerd, constipation. 08/04 19:24 Order name: Urinalysis w/ reflexes [facility] 08/04 19:24 Order name: PREGU [facility] 08/04 19:24 Order name: CBC with Diff [facility] 08/04 19:24 Order name: Comprehensive Metabolic Panel [facility] 08/04 21:53 Order name: CBC Smear Scan [facility] 08/04 22:37 Order name: Phosphorus [facility] 08/04 23:23 Order name: Thyroid Stimulating Hormone [facility] 08/04 23:48 Order name: Magnesium [facility] 08/04 23:48 Order name: CBC with Automated Diff [facility] 08/04 23:48 Order name: CBC with Automated Diff [facility] 08/04 23:48 Order name: Comprehensive Metabolic Panel [facility] 08/04 23:48 Order name: Comprehensive Metabolic Panel [facility] 08/05 00:02 Order name: T4 Free [facility] 08/04 19:24 Order name: CT Abd/Pelvis - PO and IV Contrast; Complete Time: 23:11 shawn Administered Medications: 21:00 Drug: Dulcolax VT Suppository 10 mg VT once Route: VT; jb4 21:30 Follow up: Response: No adverse reaction ha1 21:00 Drug: Lactulose PO 30 grams 45 ml PO once Volume: 45 ml; Route: PO; jb4 22:00 Follow up: Response: No adverse reaction 1 21:18 Drug: NS 0.9% IV 1000 ml IV at 1000 ml once; to be given as a bolus over 60 minutes [facility] Route: IV; Rate: 1000 ml; Site: right forearm; 08/05 00:50 Follow up: Response: No adverse reaction; IV Status: Completed infusion; IV Intake: ha1 1000ml 08/04 22:08 CANCELLED (Duplicate Order): ns 0.9% 1000 ml IV at 1000 ml once; to be given as a bolus [facility] over 60 minutes 23:03 Drug: Potassium Chloride IV 20 mEq IV at per protocol once; administer over 1-2 hours ha1 Route: IV; Rate: per protocol; Site: right forearm; 08/05 01:50 Follow up: Response: No adverse reaction; IV Status: Infusion continued upon admission [facility] 08/04 23:04 Drug: NS 0.9% with KCl IV 20 mEq/L 1000 ml IV at 125 ml/hr continuous Route: IV; Rate: ha1 125 ml/hr; Site: right forearm; 08/05 01:50 Follow up: Response: No adverse reaction; IV Status: Infusion continued upon admission; ha1 IV Intake: 250ml 00:30 Drug: Lactulose PO 30 grams 45 ml PO once Volume: 45 ml; Route: PO; ha1 01:50 Follow up: Response: No adverse reaction; Marked relief of symptoms ha1 00:50 Drug: Potassium PO Effervescent Tablet 50 mEq PO once; dissolve in 4 ounces of water or ha1 juice Route: PO; 01:20 Follow up: Response: No adverse reaction ha1 01:04 Drug: Ciprofloxacin IVPB 400 mg 200 ml IVPB once over 60 mins Volume: 200 ml; Route: ha1 IVPB; Infused Over: 60 mins; Site: left forearm; 01:50 Follow up: Response: No adverse reaction; IV Status: Infusion continued upon admission ha1 01:04 Drug: NS 0.9% IV 1000 ml IV at 1000 ml once; to be given as a bolus over 60 minutes ha1 Route: IV; Rate: 1000 ml; Site: left forearm; 01:50 Follow up: Response: No adverse reaction; IV Status: Infusion continued upon admission ha1 01:06 Drug: Potassium Chloride IV 20 mEq IV at per protocol once; administer over 1-2 hours ha1 {Note: WILL BE ADMINISTERED UPSTAIRS WHEN FIRST BAG OF 20 MEQ WILL BE COMPLETED .} Route: IV; Rate: per protocol; Site: right antecubital; 01:50 Follow up: Response: No adverse reaction; IV Status: Infusion continued upon admission ha1 Disposition Summary: 08/04/24 23:21 Hospitalization Ordered Notes: Hospitalization Status: Observation shawn Provider: Reed Fox cha Location: Telemetry/MedSurg (observation)(08/04/24 23:21) shawn Condition: Fair(08/04/24 23:21) shawn Problem: new(08/04/24 23:21) shawn Symptoms: have improved(08/04/24 23:21) shawn Bed/Room Type: Standard [facility] Room Assignment: 224(08/04/24 23:52) af3 Diagnosis - Abdominal tenderness shawn - Fecal impaction shawn - Constipation(08/04/24 23:21) shawn - Obesity, unspecified shawn - Hypokalemia shawn - Elevated white blood cell count shawn Forms: - Medication Reconciliation Form shawn - SBAR form shawn - Leadership Thank You Letter shawn Signatures: Dispatcher [employer] Rolando Haywood MD MD cha Bryson, James RN RN jb4 Julissa Vora RN RN ha1 Keya Diaz RN RN [id number] Yeni Richey af3 Corrections: (The following items were deleted from the chart) 08/04 19:24 19:24 Urinalysis+U.LAB.BRZ ordered. EDMS EDMS 19:24 19:24 CBC+H.LAB.BRZ ordered. EDMS EDMS 19:24 19:24 COMPREHENSIVE METABOLIC PANEL+C.LAB.BRZ ordered. EDMS EDMS 19:24 19:24 Abdomen Pelvis W Con+CT.RAD.BRZ ordered. EDMS EDMS 22:05 21:59 QUANTITATIVE HCG+C.LAB.BRZ ordered. EDMS EDMS 22:06 21:59 TEST, SERUM+SC.LAB.BRZ ordered. EDMS EDMS 22:08 21:58 NS 0.9% IV 1000 ml IV at 1000 ml once; to be given as a bolus over 60 minutes shawn ordered. shawn 22:22 19:24 Test, Urine+UC.LAB.BRZ ordered. EDMS EDMS 22:36 22:09 PHOSPHORUS+C.LAB.BRZ ordered. EDMS EDMS 23:15 23:15 Home shawn shawn 23:15 23:15 new shawn shawn 23:15 23:15 have improved shawn shawn 23:15 23:15 Stable shawn shawn 23:15 23:15 Constipation shawn shawn 23:15 23:15 Abdominal pain, Generalized shawn shawn 23:23 23:18 THYROID STIMULAT HORMONE+C.LAB.BRZ ordered. EDMS EDMS 23:52 23:21 shawn af3
[2024-08-04 23:33] LABS: Blood Morphology Comment NOTED (NOT SEEN); Microcytosis 1+; Platelet Estimate ADEQ; White Blood Cell Scan OK (OK)
--- NOTE | 2024-08-04 23:37 | P.HP ---
Certification for Inpatient Patient admitted to: Observation With expected LOS: <2 Midnights Practitioner: I am a practitioner with admitting privileges, knowledge of patient current condition, hospital course, and medical plan of care. Services: Services provided to patient in accordance with Admission requirements found in Title 42 Section 412.3 of the Code of Federal Regulations Patient History Date of Service: 08/05/24 Reason for admission: Abdominal pain History of Present Illness: 29-year-old female with past medical history of hypothyroidism HTN, depression, morbid obesity who presented because of lower abdominal pain, constant, crampy, associated with constipation since the last 3 days. Patient denies any nausea vomiting patient denies any fever. She states she was recently started on 2 medications which she does not recall the name. The medications were apparently for weight loss. She is unsure if the one of the medication is Ozempic. On arrival in the ED vital signs stable, afebrile, lab workup shows elevated white cell count of 14,000 with 80% neutrophilia, potassium low at 2.4 with creatinine of 1.3. Urinalysis pending. CT of the abdomen and pelvis shows evidence of rectal impaction. No colitis or diverticulitis. She received lactulose as well as Dulcolax SC in the emergency room with no relief of symptoms. Allergies No Known Allergies Allergy (Verified 08/23/16 13:37) Home Medications: Famotidine [Pepcid] 20 mg PO DAILY 08/23/16 Levothyroxine [Synthroid] 50 mcg PO [id number] 08/23/16 Norgestimate-Ethinyl Estradiol [Estarylla] 1 each PO DAILY 08/23/16 buPROPion HCl [Wellbutrin Sr] 150 mg PO DAILY 08/23/16 risperiDONE [Risperdal 1 mg tab] 1 mg PO DAILY 08/23/16 Codeine/APAP [Tylenol W/Codeine #3 tab] 1 tab PO Q4HP PRN #30 tab 08/24/16 Sulfamethoxazole/Trimethoprim [Bactrim Ds Tablet] 1 each PO BID #10 tablet 08/24/16 - Past Medical/Surgical History -: hypertension -: Obesity -: Depression -: Hypothyroidism Past Surgical History: Patient denies surgical history - Social History Smoking Status: Never smoker Smoking therapy provided: No Patient receptive to therapy: No Alcohol use: No CD- Drugs: No Place of Residence: Home Review of Systems Gastrointestinal: Abdominal Pain, Constipation Physical Examination - Physical Exam General: Alert, In no apparent distress, Oriented x3, Obese HEENT: Atraumatic, Normocephalic Neck: Supple, 2+ carotid pulse no bruit, JVD not distended Respiratory: Clear to auscultation bilaterally, Normal air movement Cardiovascular: No edema, Normal pulses, Regular rate/rhythm, Normal S1 S2 Gastrointestinal: Normal bowel sounds, No ascites, Distended, Tenderness (Lower abdomen, including suprapubic area) Musculoskeletal: No clubbing, No swelling Integumentary: No rashes, No breakdown Neurological: Normal gait, Normal speech, Normal strength at 5/5 x4 extr, Cranial nerves 3-12 intact, Other (Slow mentation and speech) - Studies Laboratory Data (last 24 hrs) 08/04/24 08/04/24 08/04/24 22:08 21:36 21:36 WBC 14.10 H Hgb 12.3 Hct 37.6 Plt Count 518 H Sodium 130 L Potassium 2.4 L* BUN 15 Creatinine 1.32 H Glucose 151 H Phosphorus Cancelled 4.2 Total Bilirubin 0.4 AST 18 ALT 26 Alkaline Phosphatase 78 Assessment and Plan - Problems (Diagnosis) (1) Constipation Current Visit: Yes Status: Acute (2) Leukocytosis Current Visit: Yes Status: Acute (3) Hypokalemia Current Visit: Yes Status: Acute (4) Acute kidney failure Current Visit: Yes Status: Acute - Plan Impression Constipation with fecal impactionmay be medication induced Leukocytosismay be due to UTI versus stercoral colitis Hypokalemia Acute kidney injury Hypothyroidism Obesity Plan Admit patient to observation Replete K Follow magnesium level Obtain TSH level, may need to adjust Synthroid dose Obtain full home med list from parents and resume home meds Start gentle IV fluid with LR with KCl Continue lactulose as well as dose soap enema x 1 today If no bowel movement may need GI evaluation in a.m. Monitor leukocytosis, follow UA to rule out UTI Start empirical antibiotics with Rocephin Full code Lovenox for DVT prophylaxis Possible DC in a.m. if bowel movement and repleted potassium Total time spent in eval greater than 70 minutes Discharge Plan: Home - Advance Directives Does patient have a Living Will: No Does patient have a Durable POA for Healthcare: No Physician Review: Patient Assessed, Agree with Above Assessment and Plan Critical Care: Yes Time Spent Managing Pts Care (In Minutes): 65
[2024-08-04] MEDS: POTASSIUM 25 MEQ EFFERV TAB PO ONE (23:44)
[2024-08-04] MEDS ORDERED: HYDRALAZINE HCL 20 MG/ML VIAL IV PRN (23:44)
[2024-08-04] MEDS ORDERED: MELATONIN 5 MG TABLET PO PRN (23:44)
[2024-08-04] MEDS ORDERED: LACTULOSE 20 GM/30 ML UCUP PO PRN (23:45)
[2024-08-04 23:48] LABS: Thyroid Stimulating Hormone 6.69 uIU/mL (0.358-3.740)
[2024-08-05] MEDS ORDERED: NA CHLORIDE 0.9% 1,000 ML ONE (00:25)
[2024-08-05] MEDS ORDERED: KCL 20 MEQ/100 mL IVPB 100 ML IV ONE (00:25)
[2024-08-05] MEDS ORDERED: POTASSIUM 25 MEQ EFFERV TAB ONE (00:25)
[2024-08-05] MEDS ORDERED: CIPROFLOXACIN 400mg IV 400 MG/200 ML BAG IV ONE (00:26)
[2024-08-05] MEDS ORDERED: Ciprofloxacin 200mg IV 0 MG/0 ML IV.SOLN. IV ONE (00:26)
[2024-08-05] MEDS ORDERED: ONDANSETRON 4 MG/2 ML VIAL ONE (01:28)
[2024-08-05 02:17] LABS: Magnesium 2.4 mg/dL (1.6-2.4)
[2024-08-05 02:26] VITALS: BMI 49.9
[2024-08-05 06:16] LABS: Absolute Lymphocytes (CBC) 1.2 K/uL (0.7-4.9); Absolute Monocytes 0.9 K/uL (0.1-1.3); Absolute Neutrophil 12.1 K/uL (1.8-8.0); Basophils % 0.2 % (0-1.3); Eosinophils % 0.1 % (0-4.4); Hemoglobin 11.4 g/dL (12.0-15.0); Lymphocytes % 8.4 % (15.3-44.8); MCH 22.2 pg (27.0-35.0); MCHC 31.6 g/dL (32.0-36.0); MCV 70.2 fL (80-100); MPV 6.9 fL (7.6-11.3); Monocytes % 6.3 % (3.3-12.3); Platelets 465 thou/uL (152-406); RBC Red Blood Cell Count 5.13 M/uL (3.86-4.86); Red Cell Distribution Width 14.5 % (12.1-15.2)
[2024-08-05 06:17] LABS: Albumin 3.8 g/dL (3.4-5.0); Albumin/Globulin Ratio 0.8 (1.1-1.8); Anion Gap 16.1 mEq/L (5.0-15.0); Bilirubin Total 0.4 mg/dL (0.2-1.0); Globulin 4.5 g/dL (2.3-3.5); Protein, Total 8.3 g/dL (6.4-8.2)
[2024-08-05 06:18] LABS: Potassium 2.1 mEq/L (3.5-5.1)
[2024-08-05] MEDS: MINERAL OIL 30 ML UCUP PO ONE (07:13)
[2024-08-05] MEDS: NS KCL 20MEQ 20 MEQ/1,000 ML BAG IV SCH (08:30)
[2024-08-05] MEDS: POLYETHYL GLY 3350 17 GM/DOSE PO SCH (08:54)
[2024-08-05] MEDS: ACETAMINOPHEN 500 MG TAB PO PRN (08:57)
[2024-08-05] MEDS: ONDANSETRON 4 MG/2 ML VIAL IV PRN (08:58)
--- NOTE | 2024-08-05 10:26 | P.PN ---
Date of Service: 08/05/24 Subjective Awake and feeling better this AM Reports a large BM this morning Will continue to treat with miralax, and mineral oil Potassium continues to be low, will replace and monitor in AM labs ROS 10 point ROS as noted above, otherwise negative Physical Exam General: Alert and Oriented x3, Obese, NAD HEENT: Atraumatic, Normocephalic Neck: Supple, 2+ carotid pulse no bruit, JVD not distended Respiratory: Clear to auscultation bilaterally, Normal air movement, on RA Cardiovascular: No edema, Normal pulses, mild tachycardia, Normal S1 S2 Gastrointestinal: Normal bowel sounds, Distended (Obese), Soft on palpation Musculoskeletal: No clubbing, No swelling Integumentary: No rashes, No breakdown Neurological: Normal gait, Normal speech, Normal strength at 5/5 x4 extr, Cranial nerves 3-12 intact, Other (Slow mentation and speech) Vitals Reviewed Problem list Constipation with fecal Impaction Tachycardia Leukocytosis hypokalemia KIMBERLY Obesity secondary to sedentary lifestyle Hypothyroidism Assessment and Plan Constipation with fecal Impaction Leukocytosis -WBC 14.1/14.3 -Empiric Rocephin -Large BM this morning -MiraLAX, mineral oil today -FLD, advance as tolerated Hyperglycemic -Reports no history of diabetes mellitus -A1c pending -Serum glucose 162 hypokalemia -K2.1, will repeat this morning -Replete PRN -IVF with potassium added -Lactulose given last night KIMBERLY -BUN/creatinine 14/1.10, GFR 69 -Improved with IV fluids Obesity secondary to sedentary lifestyle Hypothyroidism -BMI 49.9 -TSH/free T4 6.69/1.13 -continue home medication DVT ppx Lovenox Code status LOS 24 hour OBS
[2024-08-05] MEDS: POTASSIUM CL SA 10 MEQ TAB PO ONE ×2 (11:09→18:35)
[2024-08-05] MEDS: POTASSIUM CL 40 MEQ in NA CHLORIDE 0.9% 500 ML IV SCH (11:14)
[2024-08-05 13:37] LABS: Specific Gravity 1.007 (1.005-1.030); Urine Bilirubin NEGATIVE (Negative); Urine Blood Negative (Negative); Urine Clarity Clear (Clear); Urine Color Colorless (Yellow); Urine Glucose NEGATIVE (Negative); Urine Ketones NEGATIVE (Negative); Urine Microscopic Reflex YN NO UMIC; Urine Nitrite NEGATIVE (Negative); Urine Protein NEGATIVE (Negative); Urine Urobilinogen Normal (Normal); Urine pH 5.5 (5.0-7.0)
[2024-08-05 13:39] LABS: Specific Gravity 1.009 (1.005-1.030)
[2024-08-05 16:05] LABS: Anion Gap 10.4 mEq/L (5.0-15.0); Magnesium 2.4 mg/dL (1.6-2.4); Phosphorus 2.6 mg/dL (2.5-4.9)
[2024-08-05 16:06] LABS: Potassium 2.4 mEq/L (3.5-5.1)
[2024-08-06 00:25] VITALS: O2SAT 97
[2024-08-06 07:01] LABS: Absolute Basophils 0.1 K/uL (0-0.5); Absolute Eosinophils 0.3 K/uL (0-0.5); Absolute Lymphocytes (CBC) 2.3 K/uL (0.7-4.9); Absolute Monocytes 0.7 K/uL (0.1-1.3); Absolute Neutrophil 3.1 K/uL (1.8-8.0); Hematocrit 29.8 % (36.0-45.0); Hemoglobin 9.7 g/dL (12.0-15.0); Lymphocytes % 36.2 % (15.3-44.8); MCH 22.6 pg (27.0-35.0); MCHC 32.4 g/dL (32.0-36.0); MCV 69.8 fL (80-100); MPV 6.3 fL (7.6-11.3); Monocytes % 10.6 % (3.3-12.3); Neutrophils % 48.2 % (41.7-73.7); Nucleated Red Blood Cells % 0.1 % (0-0); Platelets 407 thou/uL (152-406); RBC Red Blood Cell Count 4.27 M/uL (3.86-4.86); Red Cell Distribution Width 14.9 % (12.1-15.2)
[2024-08-06 07:20] LABS: Anion Gap 6.6 mEq/L (5.0-15.0); Magnesium 2.5 mg/dL (1.6-2.4); Phosphorus 3.1 mg/dL (2.5-4.9)
[2024-08-06 07:21] LABS: Potassium 2.6 mEq/L (3.5-5.1)
--- NOTE | 2024-08-06 07:41 | P.PN ---
Date of Service: 08/06/24 Subjective Standing drinking her water Reports diarrhea has stopped Feeling well Still with intermittent tachycardia ROS 10 point ROS as noted above, otherwise negative Physical Exam General: AAO x3, Obese, NAD HEENT: Atraumatic, Normocephalic Neck: Supple, 2+ carotid pulse no bruit, JVD not distended Respiratory: Clear to auscultation bilaterally, symmetrical chest wall movement, on RA Cardiovascular: No edema, Normal pulses, mild tachycardia, Normal S1 S2 Gastrointestinal: Normal bowel sounds, Distended (Obese), Soft and benign on palpation Musculoskeletal: No clubbing, No swelling Integumentary: No rashes, No breakdown Neurological: Normal gait, Normal speech, Normal strength at 5/5 x4 extr, Cranial nerves 3-12 intact, Other (Slow mentation and speech) Vitals Reviewed Problem list Constipation with fecal Impaction-resolved Leukocytosis-resolved Diarrhea Anemia 2/2 phlebotomy Medication induced Hypokalemia KIMBERLY-resolved Obesity secondary to sedentary lifestyle Hypothyroidism Assessment and Plan Constipation with fecal Impaction-resolved Leukocytosis-resolved Diarrhea -WBC 14.1/14.3/6.3 -Empiric Rocephin -Large BM 08/05 -MiraLAX, mineral oil complete -FLD, advance as tolerated Anemia 2/2 phlebotomy -H/H 9.7/29.8 -Monitor in AM labs Hyperglycemic -Reports no history of diabetes mellitus -A1c 6.1 -Serum glucose 135 Medication induced Hypokalemia -Reports taking hydrochlorathiazide and topamax -K2.6, repeat 3.1 -continue potassium 40 mEq PO BID -potassium 40 mEq IV -potassium protocol in place -IVF with potassium added KIMBERLY-resolved -BUN/creatinine 9/0.76, GFR 107 -Improved with IV fluids Obesity secondary to sedentary lifestyle Hypothyroidism -BMI 49.9 -TSH/free T4 6.69/1.13 -continue home medication DVT ppx Lovenox Code status LOS 24 hour OBS
[2024-08-06] MEDS: AMLODIPINE 10 MG TAB PO SCH (09:38)
[2024-08-06] MEDS: BUPROPION HCL XL 150 MG TAB PO SCH (09:38)
[2024-08-06] MEDS: POTASSIUM CL SA 10 MEQ TAB PO SCH (09:38)
[2024-08-06] MEDS: hydrOXYzine HCL 25 MG TAB PO SCH (09:38)
[2024-08-06] MEDS: PANTOPRAZOLE 40MG TABLET PO SCH (09:39)
[2024-08-06] MEDS: RISPERIDONE 1 MG TABLET PO SCH (09:39)
[2024-08-06] MEDS: BUSPIRONE HCL 15 MG TABLET PO SCH (09:39)
[2024-08-06] MEDS: KCL 20 MEQ/100 mL IVPB 20 MEQ/100 ML BAG IV SCH (09:40)
[2024-08-06 16:07] LABS: Anion Gap 10.1 mEq/L (5.0-15.0); Magnesium 2.4 mg/dL (1.6-2.4); Phosphorus 2.3 mg/dL (2.5-4.9); Potassium 3.1 mEq/L (3.5-5.1)
[2024-08-07] MEDS: LACTULOSE 20 GM/30 ML UCUP PO PRN (01:40)
[2024-08-07] MEDS: Mupirocin NASAL 2 APPL/1 GM TUBE NAS SCH (09:24)
--- NOTE | 2024-08-07 11:37 | P.DS ---
Admission Date: 08/05/24 Discharge Date: 08/07/24 Disposition: ROUTINE DISCHARGE Discharge Condition: GOOD Reason for Admission: Abdominal pain Brief History of Present Illness: Diagnosis Constipation with fecal Impaction-resolved Leukocytosis-resolved Diarrhea Anemia 2/2 phlebotomy Medication induced Hypokalemia KIMBERLY-resolved Obesity secondary to sedentary lifestyle Hypothyroidism HPI 08/04/2024 Em Self is a 29-year-old female with past medical history of hypothyroidism HTN, depression, morbid obesity who presented because of lower abdominal pain, constant, crampy, associated with constipation since the last 3 days. Patient denies any nausea vomiting patient denies any fever. She states she was recently started on 2 medications which she does not recall the name. The medications were apparently for weight loss. She is unsure if the one of the medication is Ozempic. On arrival in the ED vital signs stable, afebrile, lab workup shows elevated white cell count of 14,000 with 80% neutrophilia, potassium low at 2.4 with creatinine of 1.3. Urinalysis pending. CT of the abdomen and pelvis shows evidence of rectal impaction. No colitis or diverticulitis. She received lactulose as well as Dulcolax CA in the emergency room with no relief of symptoms. Hospital Course: Em Self is a pleasant 29-year-old female with a past medical history significant for hypothyroidism HTN, depression, morbid obesity who was admitted to the [facility] on 08/04/2024 for medication induced hypokalemia and constipation with fecal impaction. Em presented to the ED with abdominal crampping/pain and constipation. CT abd/pelvis shows evidence of retcal impaction. Lab resulted with severe hypokalemia at 2.1. For the constipation, she was treated successfully with lactulose accomplishing a large BM by the next morning. It was discovered that she has medication induced hypokalemia, stopped hydrochlorothiazide and Topamax, tolerated IV and p.o. potassium replacement. Prior to discharge potassium elevated to 3.4. Plan is to discharge with potassium 40 mEq twice daily x 14 days and a close follow-up with her PCP for continued potassium monitoring and management with current medications prescribed outpatient. On 08/07/2024, Em was seen on morning rounds and deemed medically stable for discharge. Em was discharged with instructions to schedule follow-up appointments with PCP. Em was provided prescriptions for potassium 40 mEq twice daily x 14 days. Physical Exam General: Awake, alert, oriented x3, Obese, NAD HEENT: Atraumatic, Normocephalic Neck: Supple, 2+ carotid pulse no bruit, JVD not distended Respiratory: Clear BBS, symmetrical chest wall movement, on RA Cardiovascular: No edema, Normal pulses, mild tachycardia, Normal S1 S2 Gastrointestinal: Normal bowel sounds, Distended (Obese), Soft on palpation Musculoskeletal: No clubbing, No swelling Integumentary: No rashes, No breakdown Neurological: Normal gait, Normal speech, Normal strength at 5/5 x4 extr, Cranial nerves 3-12 intact Vital Signs/Physical Exam: Temp Pulse Resp BP Pulse Ox 98.2 F 95 H 18 159/69 H 96 08/07/24 08:00 08/07/24 08:00 08/07/24 08:00 08/07/24 08:00 08/07/24 08:00 Laboratory Data at Discharge: WBC 7.20 thou/uL (4.3-10.9) 08/07/24 09:58 Hgb 9.2 g/dL (12.0-15.0) L 08/07/24 09:58 Hct 29.2 % (36.0-45.0) L 08/07/24 09:58 Plt Count 371 thou/uL (152-406) 08/07/24 09:58 Sodium 139 mEq/L (136-145) 08/07/24 09:58 Potassium 3.4 mEq/L (3.5-5.1) L 08/07/24 09:58 BUN 8 mg/dL (7-18) 08/07/24 09:58 Creatinine 0.99 mg/dL (0.55-1.02) 08/07/24 09:58 Glucose 114 mg/dL (74-106) H 08/07/24 09:58 Phosphorus 2.6 mg/dL (2.5-4.9) 08/07/24 09:58 Magnesium 2.5 mg/dL (1.6-2.4) H 08/07/24 09:58 Total Bilirubin 0.4 mg/dL (0.2-1.0) 08/05/24 05:27 AST 18 U/L (15-37) 08/05/24 05:27 ALT 26 U/L (13-56) 08/05/24 05:27 Alkaline Phosphatase 74 U/L (45-117) 08/05/24 05:27 Home Medications: Amlodipine [Norvasc*] 10 mg PO DAILY 08/05/24 Buspirone HCl 15 mg PO BID 08/05/24 Hydrochlorothiazide 50 mg PO DAILY 08/05/24 Losartan Potassium [Cozaar*] 50 mg PO DAILY 08/05/24 Omeprazole 20 mg PO BEDTIME 08/05/24 Risperidone [Risperdal] 1 mg PO DAILY 08/05/24 buPROPion HCL [Bupropion Xl] 450 mg PO DAILY 08/05/24 hydrOXYzine HCL [Atarax] 50 mg PO TID 08/05/24 Potassium Oral Tab [Klor-Con 10 mEq Tab*] 40 meq PO BID 14 Days #28 tab 08/07/24 New Medications: Potassium Oral Tab [Klor-Con 10 mEq Tab*] 40 meq PO BID 14 Days #28 tab Physician Discharge Instructions: 1. Please call and schedule a follow-up appointment with your PCP in 3-5 days - Please follow-up with your PCP for medication refills/adjustments -Close potassium monitoring especially while continuing hydrochlorathiazide and topamax -adjustments to potassium medication per PCP -potassium trend 2.4/2.1/2.1/2.4/2.6/3.1/3.4, diagnosed with medication induced hypokalemia 2. Continue regular diet 3. no activity restrictions 4. Return to the ED if symptoms worsen New medications potassium 40 mEq twice daily for 14 days Diet: Regular Activity: Ad jonathan Followup: Akilah Maldonado MD [Primary Care Provider] - 1-2 Weeks
[2024-08-07 12:34] VITALS: BP 143/65; TEMP 97.9
--- NOTE | 2024-08-09 15:47 | EKG ---
Test Date: 2024-08-05 Test Time: 13:50:39 [employer] Administrator: NATALI MEASUREMENT RESULTS: Intervals: Rate: 106 [place]: 164 QRSD: 94 QT: 492 QTc: 653 [place]: P: 31 [place]: 164 QRS: 19 T: 33 INTERPRETIVE STATEMENTS: Sinus tachycardia Otherwise normal ECG No previous ECG available for comparison Electronically Signed On 08-09-24 15:47:06 [employer] by Vin Burch
== END 2024-08-07 12:59 | disposition home or self-care (01) | DRG 392 ==
LOC: ER 19:00 → ERHOLD 23:41 → 2ND 08-05 00:53 → OBSVTOIN 08-05 16:48
PROVIDERS: ADMIT Internal Medicine; ATTEND Internal Medicine
DX: K59.00 Constipation, unspecified (principal); Z68.43 Body mass index [BMI] 50.0-59.9, adult; N17.9 Acute kidney failure, unspecified; E66.01 Morbid (severe) obesity due to excess calories; E87.6 Hypokalemia; K21.9 Gastro-esophageal reflux disease without esophagitis; E03.9 Hypothyroidism, unspecified; I10 Essential (primary) hypertension; F32.A Depression, unspecified; R73.9 Hyperglycemia, unspecified; D72.829 Elevated white blood cell count, unspecified
CPT/HCPCS: 36415; 74177; 80048; 80053; 81003; 81025; 83036; 83735; 84100; 84132; 84439; 84443; 85025; 87045; 87046; 93005; 99285; G0378; J0744; J2405; J3480; J7030; J7040; Q9967